=== PATIENT | male | born 1945 | race African-American/Black ===

== ENCOUNTER 2017-04-23 10:25 | Emergency (ER) | payer OTHER ==
[~2017-04-23] VITALS: Ht 185.4 cm; Wt 82.0 kg
[2017-04-23] MEDS ORDERED: MOBIC7.5 MG PO (13:42)
[2017-04-23] MEDS ORDERED: LIDODERM 5% P1 PATCH TD (13:42)
[2017-04-23] MEDS ORDERED: PREDNISONE10 MG PO (13:42)
[2017-04-23] MEDS ORDERED: GABAPENTIN300 MG PO (14:01)
[2017-04-23 14:14] VITALS: BP 150/90
== END 2017-04-23 14:14 | disposition home or self-care (01) ==
LOC: EME 10:25
DX: M25.561 Pain in right knee (principal); M25.562 Pain in left knee; M19.90 Unspecified osteoarthritis, unspecified site
CPT/HCPCS: 99281; 99283; J1885